=== PATIENT | male | born 1970 | race Two or more races ===

== ENCOUNTER 2017-03-20 01:58 | Emergency (ER) | payer BC ==
[~2017-03-20] VITALS: Ht 185.4 cm; Wt 90.7 kg
--- NOTE | 2017-03-20 02:21 | Emergency Room Report ---
History of Present Illness General Chief Complaint: Alcohol Intoxication Source: Patient, Family Member, EMS Present Illness HPI Is a 46-year-old male presents with chief complaint of alcohol intoxication. He is at a [place] party and he was at the bar downing for 5 shots of whiskey. Is unable to drive. When he got home he said he felt dizzy had vomiting. He rolled off his bed into the floor. His unable to lift him up so she called 911. He was vomiting EMS gave him Zofran. He is better now. No chest pain. No trauma. Allergies: Coded Allergies: No Known Allergies (Unverified , 03/20/17) Patient History Past Medical History: see triage record, old chart reviewed Past Surgical History: other Pertinent Family History: none Social History: Reports: alcohol use Immunizations: other Reviewed Nursing Documentation: PMH: Agreed, PSxH: Agreed Review of Systems Eye: Denies: eye pain, blurred vision ENT: Denies: ear pain, nose congestion, throat swelling Respiratory: Denies: cough, shortness of breath Cardiovascular: Denies: chest pain, palpitations Gastrointestinal: Reports: nausea, vomiting, Denies: abdominal pain, diarrhea Musculoskeletal: Denies: back pain, joint pain Skin: Denies: rash Neurological: Denies: headache, numbness Endocrine: Denies: increased thirst, increased urine Hematologic/Lymphatic: Denies: easy bruising All Other Systems: negative except mentioned in HPI Physical Exam Vital Signs Date Time Temp Pulse Resp B/P (MAP) Pulse Ox O2 Delivery O2 Flow Rate FiO2 03/20/17 01:52 96.4 60 16 128/90 98 Room Air normal Sp02 EP Interpretation: reviewed, normal General Appearance: well appearing, no apparent distress, alert, other - Intoxicated Head: normocephalic, atraumatic Eyes: bilateral eye PERRL, bilateral eye EOMI ENT: hearing grossly normal, normal pharynx Neck: full range of motion, supple, no meningismus Respiratory: chest non-tender, lungs clear, normal breath sounds Cardiovascular #1: regular rate, rhythm, no murmur Gastrointestinal: normal bowel sounds, non tender, no mass, no organomegaly, no bruit, non-distended Musculoskeletal: back normal, normal range of motion Psychiatric: mood/affect normal Skin: warm/dry Medical Decision Making Diagnostic Impression: Primary Impression: Acute alcoholic intoxication Qualified Codes: F10.929 - Alcohol use, unspecified with intoxication, unspecified ER Course Patient with alcohol intoxication. Better now. We'll discharge home. No trauma. Last Vital Signs Date Time Temp Pulse Resp B/P (MAP) Pulse Ox O2 Delivery O2 Flow Rate FiO2 03/20/17 01:52 96.4 60 16 128/90 98 Room Air Status: improved Disposition: HOME, SELF-CARE Condition: Stable Patient Instructions: Alcohol Intoxication, [id number] Additional Instructions: Followup with your DrJairo in 7 days. Return if worse. INOCENTE JENNINGS M.D. Mar 20, 2017 02:21
[2017-03-20 04:06] VITALS: BP 136/89
[2017-03-20 04:07] VITALS: BP 136/89
== END 2017-03-20 04:06 | disposition home or self-care (01) ==
LOC: EDBD 01:58 → EMR 02:20
DX: F10.129 Alcohol abuse with intoxication, unspecified (principal); R11.2 Nausea with vomiting, unspecified
CPT/HCPCS: 36415; 96374; 99284; G0480; 80329